=== PATIENT | female | born 2000 | race African-American/Black ===

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

== ENCOUNTER 2020-01-05 17:16 | Emergency (ER) | payer BC, OTHER | END 2020-01-05 17:45 | disposition home or self-care (01) | LOC: MADERS 17:16 | DX: O26.893 Other specified pregnancy related conditions, third trimester (principal); R10.9 Unspecified abdominal pain; Z3A.35 35 weeks gestation of pregnancy | CPT/HCPCS: 99283 ==

== ENCOUNTER 2020-06-18 16:56 | Emergency (ER) | payer BC, MEDICAID, OTHER ==
[2020-06-18] MEDS ORDERED: Sodium Chloride 0.9% 1,000 ML ONE ×2 (17:13→18:31)
[2020-06-18] MEDS ORDERED: Ondansetron PF 4 MG/2 ML Vial ONE (17:13)
[2020-06-18 17:45] LABS: BHCG - Serum POSITIVE (NEGATIVE); Pregs Control Background? CLEAR/WHITE (CLR/WHITE); Pregs Control Bar Appear? YES (CONTROL BAR)
[2020-06-18 17:51] LABS: ALT (SGPT) 13 U/L (8-55); AST (SGOT) 16 U/L (5-30); Albumin 4.2 g/dL (3.5-5.0); Alkaline Phosphatase 98 U/L (40-100); Anion Gap 16 mmol/L (10-20); BUN (Urea Nitrogen) 7 mg/dL (8.4-21.0); Bilirubin, Total 0.6 mg/dL (0.2-1.2); Calc. Creatinine Clearance 0 mL/min (70-130); Calcium 9.6 mg/dL (7.8-10.44); Carbon Dioxide 19 mmol/L (22-29); Chloride 105 mmol/L (98-107); Estimated GFR-MDRD Greater than 90; Globulin 3.5 g/dL (2.4-3.5); Glucose 98 mg/dL (70-105); Hemoglobin 9.9 g/dL (12.0-16.0); Mean Corpuscular Hemoglobin 24.4 pg (25.0-35.0); Mean Corpuscular Volume 81.4 fL (78.0-98.0); Potassium 3.3 mmol/L (3.5-5.1); Protein, Total 7.7 g/dL (6.0-8.3); Red Blood Cell (RBC) Count 4.07 mill/uL (4.00-5.20); Sodium 137 mmol/L (136-145); White Blood Cell (WBC) Count 10.7 thou/uL (4.8-10.8)
[2020-06-18 17:52] LABS: #Basophils 0.1 thou/uL (0.0-0.2); #Monocytes 0.5 thou/uL (0.11-0.59); #Neutrophils 8.6 thou/uL (1.40-6.50); %Basophils 0.9 % (0.0-1.0); %Eosinophils 0.1 % (0.0-10.0); %Lymphocytes 14.4 % (28.0-48.0); %Monocytes 4.4 % (0.0-4.0); %Neutrophils 80.2 % (31.0-61.0); MDiff Complete? YES; Mean Platelet Volume 8.2 fL (7.4-10.4); Platelet Count 321 thou/uL (130-400); RBC Distribution Width 18.8 % (11.5-14.5)
[2020-06-18 17:53] LABS: Anisocytosis SLIGHT = 6-15 cells (100X) (0-5/hpf); Hypochromia SLIGHT = 6-15 cells (100X) (0-5/hpf)
[2020-06-18 17:54] LABS: Platelet Morphology Comment Appears Adequate
[2020-06-18] MEDS ORDERED: cefTRIAXone\\ROCEPHIN 1 GM VIAL ONE (18:31)
[2020-06-18] MEDS ORDERED: Sodium Chloride 0.9% 100 ML ONE (18:31)
[2020-06-18] MEDS ORDERED: Acetaminophen 500 MG TAB ONE (19:32)
[2020-06-20 13:03] LABS: SARS-CoV-2 MS2 Positive; SARS-CoV-2 N Gene Negative; SARS-CoV-2 S Gene Negative; SARS-CoV-2 by NAA Not Detected (NotDetected); SARS-CoV-2 orf1ab Negative
== END 2020-06-18 19:42 | disposition home or self-care (01) ==
LOC: MADERS 16:56
DX: O99.511 Diseases of the respiratory system complicating pregnancy, first trimester (principal); J20.9 Acute bronchitis, unspecified; J02.9 Acute pharyngitis, unspecified; O99.281 Endocrine, nutritional and metabolic diseases complicating pregnancy, first trimester; E86.0 Dehydration; Z20.828 Contact with and (suspected) exposure to other viral communicable diseases
CPT/HCPCS: 80053; 84703; 85025; 87081; 87430; 87635; 96361; 96365; 96375; J0696; J2405; J3490; J7050; U0003

== ENCOUNTER 2020-07-02 15:10 | Emergency (ER) | payer BC, MEDICAID ==
[2020-07-02] MEDS ORDERED: Sodium Chloride 0.9% 1,000 ML ONE ×2 (15:24→17:13)
[2020-07-02] MEDS ORDERED: Ondansetron PF 4 MG/2 ML Vial ONE ×2 (15:24→18:11)
[2020-07-02] MEDS ORDERED: Acetaminophen 500 MG TAB ONE (15:47)
[2020-07-02 16:11] LABS: Anion Gap 18 mmol/L (10-20); BUN (Urea Nitrogen) 6 mg/dL (8.4-21.0); Calc. Creatinine Clearance 0 mL/min (70-130); Carbon Dioxide 21 mmol/L (22-29); Chloride 100 mmol/L (98-107); Estimated GFR-MDRD Greater than 90; Glucose 88 mg/dL (70-105); Potassium 3.3 mmol/L (3.5-5.1); Sodium 136 mmol/L (136-145)
[2020-07-02 16:12] LABS: Anisocytosis SLIGHT = 6-15 cells (100X) (0-5/hpf); Band 2 % (5-11); Hemoglobin 10.8 g/dL (12.0-16.0); Hypochromia SLIGHT = 6-15 cells (100X) (0-5/hpf); Lymphocytes 36 % (28-48); MDiff Complete? YES; Mean Corpuscular HGB CONC 30.7 g/dL (32.0-36.0); Mean Corpuscular Hemoglobin 24.8 pg (25.0-35.0); Mean Platelet Volume 8.7 fL (7.4-10.4); Monocytes 8 % (0-4); Neutrophil 54 % (31-61); Platelet Count 432 thou/uL (130-400); Platelet Morphology Comment Appears Increased; RBC Distribution Width 16.8 % (11.5-14.5); Red Blood Cell (RBC) Count 4.34 mill/uL (4.00-5.20); White Blood Cell (WBC) Count 9.1 thou/uL (4.8-10.8)
[2020-07-02 16:15] LABS: ALT (SGPT) 28 U/L (8-55); AST (SGOT) 19 U/L (5-30); Albumin 4.2 g/dL (3.5-5.0); Alkaline Phosphatase 105 U/L (40-100); Bilirubin, Direct 0.2 mg/dL (0.1-0.3); Bilirubin, Total 0.4 mg/dL (0.2-1.2); Lipase 16 U/L (8-78); Protein, Total 8.5 g/dL (6.0-8.3)
[2020-07-02 16:50] LABS: Bilirubin Small (Negative); Blood, Urine Trace (Negative); Clarity Slightly Cloudy (Clear); Glucose, Urine (Dipstick) Negative (Negative); Ketone, Urine 80 mg/dL (Negative); Leukocyte Trace (Negative); Nitrite Negative (Negative); Protein, Urine (Dipstick) 100 mg/dL (Neg-Trace); Urobilinogen 0.2 mg/dL (Less than 2)
[2020-07-02 17:00] LABS: RBC/HPF 0-3 HPF (0-3); Specific Gravity, Urine 1.033 (1.002-1.036)
[2020-07-02 17:01] LABS: Bacteria/HPF 2+ HPF (None Seen); Trichomonas/HPF 1+ HPF (None Seen)
[2020-07-02] MEDS ORDERED: cefTRIAXone\\ROCEPHIN 2 GM VIAL ONE (17:13)
[2020-07-02] MEDS ORDERED: Potassium Chloride 20 MEQ TAB ONE (17:13)
[2020-07-02] MEDS ORDERED: Sodium Chloride 0.9% 100 ML ONE (17:14)
== END 2020-07-02 18:20 | disposition home or self-care (01) ==
LOC: MADERS 15:10
DX: O21.9 Vomiting of pregnancy, unspecified (principal); O99.281 Endocrine, nutritional and metabolic diseases complicating pregnancy, first trimester; E87.6 Hypokalemia; O23.41 Unspecified infection of urinary tract in pregnancy, first trimester; Z3A.01 Less than 8 weeks gestation of pregnancy
CPT/HCPCS: 80048; 80076; 81003; 81015; 83605; 83690; 84702; 85025; 87086; 96361; 96365; 96375; 96376; J0696; J2405; J3490; J7050

== ENCOUNTER 2020-08-09 16:43 | Emergency (ER) | payer BC, MEDICAID, OTHER ==
[2020-08-11 12:16] LABS: SARS-CoV-2 MS2 Positive; SARS-CoV-2 N Gene Positive; SARS-CoV-2 S Gene Positive; SARS-CoV-2 by NAA DETECTED (NotDetected); SARS-CoV-2 orf1ab Positive
== END 2020-08-09 17:51 | disposition home or self-care (01) ==
LOC: MADERS 16:43
DX: U07.1 COVID-19 (principal)
CPT/HCPCS: 87635; 99284; U0003

== ENCOUNTER 2021-07-04 18:59 | Emergency (ER) | payer BC, MEDICAID ==
[2021-07-05 14:09] LABS: SARS-CoV-2 PCR by NAA Not Detected (NotDetected)
== END 2021-07-04 21:29 | disposition home or self-care (01) ==
LOC: MADERS 18:59
DX: B34.9 Viral infection, unspecified (principal); Z20.822 Contact with and (suspected) exposure to COVID-19
CPT/HCPCS: 99283; U0003; U0005

== ENCOUNTER 2021-10-10 02:50 | Emergency (ER) | payer BC, MEDICAID ==
[2021-10-10] MEDS ORDERED: Ibuprofen 800 MG TAB ONE (03:42)
[2021-10-10] MEDS ORDERED: Azithromycin 250 MG TAB ONE (03:42)
== END 2021-10-10 03:53 | disposition home or self-care (01) ==
LOC: MADERS 02:50
DX: J02.0 Streptococcal pharyngitis (principal)
CPT/HCPCS: 99283

== ENCOUNTER 2022-05-18 09:44 | Emergency (ER) | payer BC, OTHER ==
[2022-05-18 10:20] LABS: Pregnancy Test - Urine (BHCG) POSITIVE (Negative); Pregu Control Background? CLEAR/WHITE (CLR/WHITE); Pregu Control Bar Appear? YES (CONTROL BAR)
[2022-05-18 10:21] LABS: Bilirubin Negative (Negative); Blood, Urine Negative (Negative); Clarity Clear (Clear); Glucose, Urine (Dipstick) Negative (Negative); Ketone, Urine Negative (Negative); Leukocyte Trace (Negative); Nitrite Negative (Negative); Protein, Urine (Dipstick) Negative (Neg-Trace); Specific Gravity 1.025 (1.002-1.036); Specific Gravity, Urine 1.025 (1.005-1.030); Urobilinogen 0.2 mg/dL (Less than 2)
[2022-05-18 10:22] LABS: RBC/HPF 0-3 HPF (0-3)
[2022-05-18 10:23] LABS: Bacteria/HPF 1+ HPF (None Seen)
[2022-05-18 10:24] LABS: Trichomonas/HPF Rare HPF (None Seen)
== END 2022-05-18 11:00 | disposition short-term general hospital (02) ==
LOC: MADERS 09:44
DX: O99.891 Other specified diseases and conditions complicating pregnancy (principal); A59.01 Trichomonal vulvovaginitis; R51.9 Headache, unspecified; Z3A.01 Less than 8 weeks gestation of pregnancy
CPT/HCPCS: 81003; 81015; 81025; 87086; 99284

== ENCOUNTER 2022-05-30 13:20 | Emergency (ER) | payer BC, OTHER ==
[2022-05-30 14:31] LABS: ALT (SGPT) 16 U/L (8-55); AST (SGOT) 13 U/L (5-34); Albumin 3.4 g/dL (3.5-5.0); Alkaline Phosphatase 62 U/L (40-110); Anion Gap 12 mmol/L (10-20); BUN (Urea Nitrogen) 5 mg/dL (7.0-18.7); Bilirubin, Total 0.4 mg/dL (0.2-1.2); CK (CPK) 95 U/L (29-168); Calc. Creatinine Clearance 0 mL/min (70-130); Calcium 8.5 mg/dL (7.8-10.44); Carbon Dioxide 20 mmol/L (22-29); Chloride 109 mmol/L (98-107); Estimated GFR 130; Globulin 2.6 g/dL (2.4-3.5); Glucose 103 mg/dL (70-105); Lipase 10 U/L (8-78); Potassium 3.2 mmol/L (3.5-5.1); Sodium 138 mmol/L (136-145)
[2022-05-30 14:43] LABS: #Lymphocytes 1.5 thou/uL (1.20-3.40); #Monocytes 0.4 thou/uL (0.11-0.59); #Neutrophils 4.5 thou/uL (1.40-6.50); %Basophils 0.6 % (0.0-1.0); %Eosinophils 0.3 % (0.0-10.0); %Lymphocytes 23.6 % (21.0-51.0); %Monocytes 5.4 % (0.0-10.0); %Neutrophils 70.1 % (42.0-75.0); Hemoglobin 9.9 g/dL (12.0-16.0); Mean Corpuscular HGB CONC 33.4 g/dL (32.0-36.0); Mean Corpuscular Hemoglobin 30.2 pg (27.0-31.0); Mean Corpuscular Volume 90.5 fL (78.0-98.0); Mean Platelet Volume 10.4 fL (7.4-10.4); Platelet Count 195 thou/uL (130-400); RBC Distribution Width 11.9 % (11.5-14.5); Red Blood Cell (RBC) Count 3.26 mill/uL (4.20-5.40); White Blood Cell (WBC) Count 6.5 thou/uL (4.8-10.8)
[2022-05-30] MEDS ORDERED: Potassium Chloride 20 MEQ TAB ONE (14:52)
[2022-05-30 14:55] LABS: Magnesium 1.8 mg/dL (1.6-2.6)
[2022-05-30] MEDS ORDERED: Lactated Ringer's 1,000 ML ONE (15:00)
== END 2022-05-30 15:18 | disposition home or self-care (01) ==
LOC: MADERS 13:20
DX: O99.891 Other specified diseases and conditions complicating pregnancy (principal); E86.0 Dehydration; E87.6 Hypokalemia; O21.9 Vomiting of pregnancy, unspecified; O99.011 Anemia complicating pregnancy, first trimester; D64.9 Anemia, unspecified; Z3A.01 Less than 8 weeks gestation of pregnancy
CPT/HCPCS: 80053; 82550; 83690; 83735; 85025; 93005; 94760; J7120

== ENCOUNTER 2022-06-10 13:41 | Emergency (ER) | payer BC, OTHER ==
[2022-06-10] MEDS ORDERED: Lactated Ringer's 1,000 ML ONE (13:53)
[2022-06-10] MEDS ORDERED: Ondansetron PF 4 MG/2 ML Vial ONE (13:53)
[2022-06-10] MEDS ORDERED: Multivit, Adult Inj 10 ML VIAL ONE (14:24)
[2022-06-10] MEDS ORDERED: Thiamine HCl 200 MG/2 ML VIAL ONE (14:24)
[2022-06-10] MEDS ORDERED: D5 1/2 NS w/20 mEq KCL 0 ML ONE (14:24)
[2022-06-10] MEDS ORDERED: Dextrose 5 %-0.45 % NaCl 1,000 ML ONE (14:25)
[2022-06-10 14:44] LABS: Band 2 % (5-11); Eosinophils 3 % (0-10); Hemoglobin 11.7 g/dL (12.0-16.0); Lymphocytes 21 % (21-51); MDiff Complete? YES; Mean Corpuscular HGB CONC 32.6 g/dL (32.0-36.0); Mean Corpuscular Hemoglobin 30.5 pg (27.0-31.0); Mean Corpuscular Volume 93.4 fL (78.0-98.0); Mean Platelet Volume 10.6 fL (7.4-10.4); Monocytes 3 % (0-10); Neutrophil 65 % (42-75); Platelet Count 229 thou/uL (130-400); Platelet Morphology Comment Appears Adequate; RBC Distribution Width 11.6 % (11.5-14.5); Reactive Lymphocytes 6 % (0-10); Red Blood Cell (RBC) Count 3.83 mill/uL (4.20-5.40); White Blood Cell (WBC) Count 7.3 thou/uL (4.8-10.8)
[2022-06-10 15:33] LABS: Bilirubin Small (Negative); Blood, Urine Negative (Negative); Glucose, Urine (Dipstick) Negative (Negative); Ketone, Urine > or equal to 80 mg/dL (Negative); Leukocyte Trace (Negative); Nitrite Negative (Negative); Protein, Urine (Dipstick) 30 mg/dL (Neg-Trace); pH, Urine 5.5 (5.0-9.0)
[2022-06-10 15:34] LABS: Clarity Hazy (Clear); Specific Gravity, Urine 1.032 (1.002-1.036)
[2022-06-10 15:41] LABS: RBC/HPF None Seen HPF (0-3)
[2022-06-10 15:43] LABS: Bacteria/HPF Rare-Few HPF (None Seen); Mucous/LPF 3+ LPF (<2+); Trichomonas/HPF 1+ HPF (None Seen)
[2022-06-10] MEDS ORDERED: Metoclopramide HCl 10 MG/2 ML VIAL ONE (16:00)
[2022-06-10 16:01] LABS: ALT (SGPT) 30 U/L (8-55); AST (SGOT) 22 U/L (5-34); Albumin 4.2 g/dL (3.5-5.0); Alkaline Phosphatase 86 U/L (40-110); Anion Gap 18 mmol/L (10-20); BUN (Urea Nitrogen) 9 mg/dL (7.0-18.7); Bilirubin, Total 0.9 mg/dL (0.2-1.2); Calc. Creatinine Clearance 0 mL/min (70-130); Calcium 9.7 mg/dL (7.8-10.44); Carbon Dioxide 20 mmol/L (22-29); Chloride 104 mmol/L (98-107); Estimated GFR 128; Globulin 3.9 g/dL (2.4-3.5); Glucose 82 mg/dL (70-105); Potassium 3.4 mmol/L (3.5-5.1); Protein, Total 8.1 g/dL (6.0-8.3); Sodium 139 mmol/L (136-145)
[2022-06-10] MEDS ORDERED: Azithromycin 250 MG TAB ONE (16:34)
[2022-06-10] MEDS ORDERED: metroNIDAZOLE 250 MG TAB ONE (16:34)
[2022-06-10] MEDS ORDERED: cefTRIAXone\\ROCEPHIN 1 GM VIAL ONE (16:37)
[2022-06-10] MEDS ORDERED: Sterile Water 10 ML ONE (16:37)
== END 2022-06-10 16:50 | disposition home or self-care (01) ==
LOC: MADERS 13:41
DX: O21.0 Mild hyperemesis gravidarum (principal); O99.891 Other specified diseases and conditions complicating pregnancy; A59.9 Trichomoniasis, unspecified; E87.6 Hypokalemia; R82.71 Bacteriuria; E86.0 Dehydration; Z3A.09 9 weeks gestation of pregnancy
CPT/HCPCS: 36415; 80053; 81003; 81015; 83690; 84702; 85025; 86900; 86901; 93005; 94760; 96365; 96366; 96375; J0696; J2405; J2765; J3411; J3480; J7042; J7120

== ENCOUNTER 2022-10-08 08:48 | Emergency (ER) | payer BC, OTHER | END 2022-10-08 09:45 | disposition home or self-care (01) | LOC: MADERS 08:48 | DX: O99.512 Diseases of the respiratory system complicating pregnancy, second trimester (principal); J06.9 Acute upper respiratory infection, unspecified; Z3A.27 27 weeks gestation of pregnancy; Z20.822 Contact with and (suspected) exposure to COVID-19 | CPT/HCPCS: 87804; 87807; 94760; U0003; U0005 ==

== ENCOUNTER 2023-07-06 13:59 | Emergency (ER) | payer BC, OTHER ==
[2023-07-06] MEDS ORDERED: Dexamethasone 4 MG TAB ONE (14:34)
[2023-07-06 15:17] LABS: SARS-CoV-2 NAA Rapid Test DETECTED (NotDetected)
[2023-07-06] MEDS ORDERED: Acetaminophen 500 MG TAB ONE (15:35)
== END 2023-07-06 15:30 | disposition home or self-care (01) ==
LOC: MADERS 13:59
DX: U07.1 COVID-19 (principal); B08.5 Enteroviral vesicular pharyngitis
CPT/HCPCS: 87081; 87430; 87804; 99283; J8540; U0002

== ENCOUNTER 2023-11-13 18:46 | Emergency (ER) | payer BC, OTHER ==
[2023-11-13 20:03] LABS: Bilirubin Negative (Negative); Blood, Urine Moderate (Negative); Clarity Turbid (Clear); Glucose, Urine (Dipstick) Negative (Negative); Ketone, Urine 15 mg/dL (Negative); Leukocyte Negative (Negative); Nitrite Positive (Negative); Protein, Urine (Dipstick) Trace mg/dL (Neg-Trace); Urobilinogen 0.2 mg/dL (Less than 2); pH, Urine 5.5 (5.0-9.0)
[2023-11-13 20:19] LABS: Specific Gravity, Urine 1.028 (1.002-1.036)
[2023-11-13 20:23] LABS: Bacteria/HPF 2+ HPF (None Seen); CAUTI Indications for Culture Dysuria,urgency,freq; RBC/HPF 0-3 HPF (0-3); WBC/HPF 0-3 HPF (0-3)
[2023-11-13 20:24] LABS: Urine Culture Reflex No No
[2023-11-13] MEDS ORDERED: Nitrofurantoin Monohyd/M-Cryst 100 MG CAP ONE (20:46)
[2023-11-13 20:51] LABS: Pregnancy Test - Urine (BHCG) Negative (Negative); Pregu Control Background? CLEAR/WHITE (CLR/WHITE); Pregu Control Bar Appear? YES (CONTROL BAR); Specific Gravity 1.028 (1.002-1.036)
== END 2023-11-13 21:00 | disposition home or self-care (01) ==
LOC: MADERS 18:46
DX: N39.0 Urinary tract infection, site not specified (principal); N20.9 Urinary calculus, unspecified; J02.9 Acute pharyngitis, unspecified
CPT/HCPCS: 81001; 81025; 87081; 87220; 87430; 99283

== ENCOUNTER 2024-10-25 03:33 | Emergency (ER) | payer BC ==
[2024-10-25] MEDS ORDERED: Ondansetron ODT 4 MG TAB ONE (04:09)
[2024-10-25 04:17] LABS: Bilirubin Small (Negative); Blood, Urine Negative (Negative); Glucose, Urine (Dipstick) Negative (Negative); Ketone, Urine Trace mg/dL (Negative); Leukocyte Negative (Negative); Nitrite Negative (Negative); Protein, Urine (Dipstick) 100 mg/dL (Neg-Trace); Specific Gravity, Urine 1.026 (1.002-1.036); Urobilinogen 0.2 mg/dL (Less than 2); pH, Urine 5.5 (5.0-9.0)
[2024-10-25 04:18] LABS: Bacteria/HPF 2+ HPF (None Seen); CAUTI Indications for Culture Dysuria,urgency,freq; Clarity Cloudy (Clear); Mucous/LPF 3+ LPF (<2+); RBC/HPF None Seen HPF (0-3)
[2024-10-25 04:19] LABS: Urine Culture Reflex Yes Yes
[2024-10-25 04:35] LABS: Band 1 % (5-11); Hematocrit 38.8 % (36.0-47.0); Lymphocytes 37 % (21-51); MDiff Complete? YES; Mean Corpuscular HGB CONC 33.6 g/dL (32.0-36.0); Mean Corpuscular Hemoglobin 30.4 pg (27.0-31.0); Mean Corpuscular Volume 90.4 fl (78.0-98.0); Mean Platelet Volume 8.4 fL (7.4-10.4); Monocytes 7 % (0-10); Neutrophil 55 % (42-75); Platelet Count 286 10x3/uL (130-400); RBC Distribution Width 11.6 % (11.5-14.5); Red Blood Cell (RBC) Count 4.29 mill/uL (4.20-5.40)
[2024-10-25 04:41] LABS: BHCG - Serum Negative (NEGATIVE); Pregs Control Background? CLEAR/WHITE (CLR/WHITE); Pregs Control Bar Appear? YES (CONTROL BAR)
[2024-10-25 04:44] LABS: ALT (SGPT) 74 U/L (8-55); AST (SGOT) 60 U/L (5-34); Alkaline Phosphatase 116 U/L (40-110); Anion Gap 15 mmol/L (10-20); BUN (Urea Nitrogen) 11 mg/dL (7.0-18.7); Bilirubin, Total 0.5 mg/dL (0.2-1.2); Calc. Creatinine Clearance 0 mL/min (70-130); Calcium 9.4 mg/dL (7.8-10.44); Carbon Dioxide 16 mmol/L (22-29); Chloride 110 mmol/L (98-107); Estimated GFR 109; Globulin 3.6 g/dL (2.4-3.5); Glucose 108 mg/dL (70-105); Magnesium 1.8 mg/dL (1.6-2.6); Potassium 3.3 mmol/L (3.5-5.1); Protein, Total 7.6 g/dL (6.0-8.3); Sodium 138 mmol/L (136-145)
[2024-10-25] MEDS ORDERED: Sodium Chloride 0.9% 1,000 ML ONE (04:58)
[2024-10-25] MEDS ORDERED: Ondansetron PF 4 MG/2 ML Vial ONE (04:58)
[2024-10-26 01:57] LABS: Campy jejuni + coli by PCR Negative (Negative); STEC Shiga Toxin 1+2 Negative (Negative); Salmonella spp. by PCR Negative (Negative); Shigella spp + EIEC by PCR Negative (Negative)
== END 2024-10-25 06:11 | disposition home or self-care (01) ==
LOC: MADERS 03:33
DX: R11.2 Nausea with vomiting, unspecified (principal); R19.7 Diarrhea, unspecified; E87.20 Acidosis, unspecified
CPT/HCPCS: 36415; 80053; 81001; 83735; 84703; 85025; 87077; 87086; 87186; 87505; 96360; J2405; J7030; Q0162